=== PATIENT | male | born 1950 | race Caucasian/White ===

== ENCOUNTER → 2018-05-20 | Outpatient (CLI) | payer MEDICARE ==
[~2018-05-20] MED LIST: ASPI-586 PO; GABA-488 PO; INSU100V16 SQ; INSU100V6 SQ; NITR-65 PO; OXYC1TAB87 PO; TAMS0.4C2 PO
--- NOTE | 2018-05-20 15:46 | Diagnostic Imaging Report ---
INDICATION: Kidney stones. TIME OF EXAM: 2:20 PM FINDINGS: Single view of the abdomen does show an approximately 7 mm calcific density overlying the lower pole of the right kidney suggestive of a renal calculus. No left-sided renal calculi are seen. No definite ureteral calculi are detected. The bowel gas pattern is unremarkable. IMPRESSION: Probable 7 mm right lower pole renal calculus. Dictated by: Dictated on workstation # [id number]
== END ==
LOC: RAD 13:46
PROVIDERS: ATTEND Urology
DX: N20.0 Calculus of kidney (principal)
CPT/HCPCS: 74018

== ENCOUNTER 2018-05-22 05:37 | Outpatient (CLI) | payer MEDICARE ==
[~2018-05-22] VITALS: Ht 170.2 cm; Wt 111.1 kg
[2018-05-22] MEDS ORDERED: GABA-488 PO (10:45)
[2018-05-22] MEDS ORDERED: INSU100V6 SQ (10:45)
[2018-05-22] MEDS ORDERED: INSU100V16 SQ (10:45)
[2018-05-22] MEDS ORDERED: TAMS0.4C2 PO (10:45)
[2018-05-22] MEDS ORDERED: ASPI-586 PO (10:46)
== END 2018-05-22 11:00 | disposition home or self-care (01) ==
LOC: PREOP 05:37
PROVIDERS: ATTEND Urology
DX: Z01.818 Encounter for other preprocedural examination (principal)

== ENCOUNTER 2018-05-27 07:39 | Day surgery (SDC) | payer MEDICARE ==
[~2018-05-27] VITALS: Ht 170.2 cm; Wt 111.1 kg
[~2018-05-27 07:39] MED LIST changes: -NITR-65 PO; -OXYC1TAB87 PO
[2018-05-27 07:46] VITALS: BP 151/90
[2018-05-27] MEDS ORDERED: cefTRIAXone FOR IV USE 1,000 MG in NS (IVPB) 50 ML IV ONE (08:00)
--- NOTE | 2018-05-27 08:01 | Progress Note-Pre Operative ---
Pre-Operative Progress Note H&P Reviewed The H&P was reviewed, patient examined and no changes noted. Date Seen by Provider: May 27, 2018 Time Seen by Provider: 08:00 Date H&P Reviewed: May 27, 2018 Time H&P Reviewed: 08:00 Pre-Operative Diagnosis: RT RENAL STONE HEATHER OBRIEN MD May 27, 2018 8:01 am
[2018-05-27] MEDS: LACTATED RINGERS 1,000 ML IV PRN ×2 (08:25→11:25)
[2018-05-27] MEDS ORDERED: MIDAZOLAM 2 MG/2 ML (VERSED) VIAL IV ONE ×2 (10:00)
[2018-05-27] MEDS ORDERED: ONDANSETRON 4 MG/2 ML (SDV) Z0FRAN ONE (10:22)
[2018-05-27] MEDS ORDERED: fentaNYL INJECTION 100 MCG/2 ML AMP ONE (10:22)
[2018-05-27] MEDS ORDERED: LIDOCAINE PF 2% 2 ML (XYLOCAINE) VIAL ONE (10:22)
[2018-05-27] MEDS ORDERED: proPOfol 200 MG/20 ML (DIPRIVAN) VIAL IV ONE (10:22)
[2018-05-27] MEDS ORDERED: FUROSEMIDE 40 MG/4 ML INJ (LASIX) ONE (10:23)
[2018-05-27] MEDS ORDERED: KETOROLAC 30 MG/ML VIAL ONE (10:23)
[2018-05-27] MEDS ORDERED: SEVOFLURANE (ULTANE) 15 ML INHAL SOLN ONE ×2 (10:23→11:39)
--- NOTE | 2018-05-27 11:17 | Discharge Inst-Urology ---
Discharge Inst-Urology Discharge Medications New, Converted, or Re-newed RX: RX on Chart Patient Instructions/Follow Up Plan Please make appointment to been seen in office Saturday 06/09, KUB prior to it KUB on way home Post ESWL instructions Increase oral fluids for 48 hours and then as needed. Diet and Activity as tolerated. If questions or concerns contact your physician Or seek help at emergency department. HEATHER OBRIEN MD May 27, 2018 11:17 am
--- NOTE | 2018-05-27 11:18 | Progress Note-Post Operative ---
Post-Operative Progess Note Surgeon (s)/Welder Apprentice Arc (s) Surgeon HEATHER OBRIEN MD Welder Apprentice Arc: NONE Pre-Operative Diagnosis RT RENAL STONE Post-Operative Diagnosis SAME Procedure & Operative Findings Date of Procedure 05/27/18 Procedure Performed/Findings RT ESWL Anesthesia Type GENERAL Estimated Blood Loss Estimated blood loss (mL): NONE Specimens/Packing Specimens Removed NONE Packing: NONE HEATHER OBRIEN MD May 27, 2018 11:18 am
[2018-05-27] MEDS ORDERED: PHENYLEPHRINE 100 MCG/ML 10 ML (ANESTHESIA) SYR ONE (11:25)
[2018-05-27] MEDS ORDERED: MEPERIDINE (DEMEROL) INJ 50 MG/ML IVP ONE (12:00)
[2018-05-27] MEDS ORDERED: morphine INJ 10 MG/ML 1ML (SYR OR VIAL) IVP ONE (12:00)
[2018-05-27] MEDS ORDERED: ONDANSETRON 4 MG/2 ML (SDV) Z0FRAN IVP PRN (12:00)
--- NOTE | 2018-05-27 12:27 | Anesthesia-General Post-Op ---
General Patient Condition Mental Status/LOC: Same as Preop Cardiovascular: Satisfactory Nausea/Vomiting: Absent Respiratory: Satisfactory Pain: Controlled Complications: Absent Post Op Complications Complications None Follow Up Care/Instructions Patient Instructions None needed. Anesthesia/Patient Condition Patient Condition Patient is doing well, no complaints, stable vital signs, no apparent adverse anesthesia problems. No complications reported per nursing. D/C home per [facility] [place] Criteria: Yes YANA SAMANO CRNA May 27, 2018 12:27
--- NOTE | 2018-05-27 12:33 | Diagnostic Imaging Report ---
INDICATION: Nephrolithiasis. COMPARISON: May 20, 2018. FINDINGS: There is a persistent stone in the inferior aspect of the right kidney. The bowel gas pattern is nonspecific. The osseous structures are unremarkable. IMPRESSION: Persistent 7 mm stone in the right kidney. Nonspecific bowel gas pattern. Dictated by: Dictated on workstation # [id number]
[2018-05-27 12:40] VITALS: BP 134/76
[2018-05-27 13:05] VITALS: BP 141/84
[2018-05-27] MEDS ORDERED: NITR-65 PO (13:14)
[2018-05-27] MEDS ORDERED: OXYC1TAB87 PO (13:14)
[2018-05-27 13:29] VITALS: BP 140/85
[2018-05-27 13:35] VITALS: BP 140/85
--- NOTE | 2018-05-27 14:01 | Diagnostic Imaging Report ---
INDICATION: Post extracorporeal shock wave lithotripsy. TECHNIQUE: Single supine view of the abdomen at 1:40 PM. CORRELATION STUDY: Earlier the same day. FINDINGS: Calcification superimposed over the inferior pole of the right kidney is again demonstrated. There appears to be perhaps very slight fragmentation of this grouped area of calcifications compared to the baseline study. The overall area of the microcalcifications is now approximately 11 mm, previously 7 mm at baseline. Definitive calcification along the expected course of the ureter does not appear to be present. The bowel gas pattern appears unremarkable. IMPRESSION: There is a slightly more fragmented appearance about the grouped calcifications in the inferior pole of the right kidney compared to the baseline study. Dictated by: Dictated on workstation # [id number]
--- NOTE | 2018-05-27 16:29 | OPERATIVE REPORT ---
DATE OF SERVICE: 05/27/2018 PREOPERATIVE DIAGNOSIS: Right renal stone. POSTOPERATIVE DIAGNOSIS: Right renal stone. OPERATION PERFORMED: Right ESWL. SURGEON: Rodney Obrien MD. ANESTHESIA: General. COMPLICATIONS: None. DESCRIPTION OF PROCEDURE: Under satisfactory general anesthesia, the patient in supine position on the ESWL table, the right renal stone was localized. Shocks were delivered at a kV of 4. Total of 3000 shocks fragmented the stone. The patient received 40 mg of Lasix and 30 mg of Toradol IV at the end of the procedure. He tolerated the procedure and anesthesia well and was sent to recovery room in stable condition. Job ID: [id number] DocumentID: [id number] Dictated Date: 05/27/2018 11:42:41 Brush Sander Date: 05/27/2018 16:29:15 Dictated By: RODNEY OBRIEN MD
== END 2018-05-27 13:35 | disposition home or self-care (01) ==
LOC: SDC 07:39
PROVIDERS: ATTEND Urology
DX: N20.0 Calculus of kidney (principal); I10 Essential (primary) hypertension; G47.33 Obstructive sleep apnea (adult) (pediatric); E11.9 Type 2 diabetes mellitus without complications; I25.10 Atherosclerotic heart disease of native coronary artery without angina pectoris; B19.20 Unspecified viral hepatitis C without hepatic coma; K74.60 Unspecified cirrhosis of liver; F17.210 Nicotine dependence, cigarettes, uncomplicated; E66.9 Obesity, unspecified; Z68.38 Body mass index [BMI] 38.0-38.9, adult; Z79.4 Long term (current) use of insulin; Z79.82 Long term (current) use of aspirin; Z79.899 Other long term (current) drug therapy; Z95.1 Presence of aortocoronary bypass graft
CPT/HCPCS: 74018; 82962; 87081

== ENCOUNTER → 2018-06-09 | Outpatient (CLI) | payer MEDICARE ==
[~2018-06-09] MED LIST changes: +NITR-65 PO; +OXYC1TAB87 PO
--- NOTE | 2018-06-09 14:06 | Diagnostic Imaging Report ---
INDICATION: Nephrolithiasis. Comparison is made with prior examination from 05/27/18. Two views were obtained. FINDINGS: Note is again made of several nonobstructing stones in the right kidney. There is questionable stone in the mid right ureter. Bowel gas pattern is otherwise nonspecific. The osseous structures are unremarkable. IMPRESSION: Several residual fragmented stone fragments in the right kidney with questionable stone in the mid right ureter. Dictated by: Dictated on workstation # [id number]
== END ==
LOC: RAD 13:24
PROVIDERS: ATTEND Urology
DX: N20.0 Calculus of kidney (principal)
CPT/HCPCS: 74018

== ENCOUNTER → 2018-12-11 | Outpatient (CLI) | payer MEDICARE | LOC: CARD 13:08 | PROVIDERS: ATTEND Internal Medicine Cardiovascular Disease | DX: I25.10 Atherosclerotic heart disease of native coronary artery without angina pectoris (principal); I25.83 Coronary atherosclerosis due to lipid rich plaque | CPT/HCPCS: 93306 ==

== ENCOUNTER → 2018-12-11 | Outpatient (CLI) | payer MEDICARE ==
--- NOTE | 2018-12-11 17:56 | Diagnostic Imaging Report ---
INDICATION: Nephrolithiasis. COMPARISON: Comparison is made with prior examination of 06/09/2018. FINDINGS: There are several persistent calcifications projecting over the inferior aspect of the right kidney. Bowel gas pattern is nonspecific. The osseous structures are unremarkable. IMPRESSION: Persistent right nephrolithiasis. Dictated by: Dictated on workstation # [id number]
== END ==
LOC: RAD 15:24
PROVIDERS: ATTEND Urology
DX: N20.0 Calculus of kidney (principal)
CPT/HCPCS: 74018